=== PATIENT | female | born 1985 | race Caucasian/White ===

== ENCOUNTER 2017-09-03 04:02 | Inpatient (IN) | payer OTHER ==
[~2017-09-03] VITALS: Ht 170.2 cm; Wt 73.5 kg
[2017-09-03] MEDS ORDERED: SODIUM CHLORIDE 0.9% 1,000 ML IV ONE (04:46)
[2017-09-03] MEDS ORDERED: ONDANSETRON HCL 4MG/2ML VIAL IV STA (04:46)
[2017-09-03] MEDS ORDERED: LORAZEPAM 2MG/ML CPJ IV ONE (05:00)
[2017-09-03 05:05] LABS: CLARITY URINE CLOUDY (CLEAR); COLOR URINE DARK YELLOW (YELLOW); KETONES URINE 1+ (NEGATIVE); LEUKOCYTE ESTERASE URINE 1+ (NEGATIVE); NITRITE URINE POSITIVE (NEGATIVE); OCCULT BLOOD URINE 2+ (NEGATIVE); PH URINE 5.5 (4.5-8.0); PROTEIN URINE 3+ (NEGATIVE); SPECIFIC GRAVITY URINE 1.027 (1.005-1.030)
[2017-09-03 05:09] LABS: EOSINOPHILS % 0.2 % (0.0-5.0); HEMATOCRIT. 40.4 % (36.0-48.0); HEMOGLOBIN. 13.8 g/dL (12.0-16.0); LYMPHOCYTES % 42.2 % (20.0-50.0); MEAN CORPUSCULAR HEMOGLOBIN 31.6 pg (28.0-32.0); MEAN CORPUSCULAR VOLUME 92.4 fL (81.0-99.0); NEUTROPHILS % 42.6 % (40.0-76.0); PLATELET 98 x1000/uL (130-400); RED BLOOD CELL COUNT 4.37 mill/uL (4.2-5.4); RED CELL DISTRIBUTION WIDTH 15.5 % (11.6-14.6)
[2017-09-03 05:27] LABS: CARBON DIOXIDE 23 mEq/L (21-32); CHLORIDE 100 mEq/L (98-107)
[2017-09-03] MEDS ORDERED: SODIUM CHLORIDE 0.9% 1000ML BAG (SEPSIS BOLUS) IV ONE (06:15)
[2017-09-03] MEDS ORDERED: LEVOFLOXACIN 750MG PREMIX 150 ML IV ONE (06:15)
[2017-09-03 08:00] VITALS: BP 122/71
[2017-09-03] MEDS ORDERED: KETOROLAC 15MG/ML VIAL IV PRN (08:00)
[2017-09-03] MEDS ORDERED: NA PHOS,M-B/NA PHOS,DI-BA ENEMA 118ML PR PRN (08:00)
[2017-09-03] MEDS ORDERED: MAGNESIUM/ALUMINUM HYDROXIDE/SIMETHICONE 30ML UDC PO PRN (08:00)
[2017-09-03] MEDS ORDERED: ONDANSETRON HCL 4MG/2ML VIAL IV PRN (08:00)
[2017-09-03] MEDS ORDERED: POTASSIUM CHLORIDE 20MEQ TABLET SR PO SCH (08:00)
[2017-09-03] MEDS ORDERED: CLONIDINE 0.1MG TABLET PO PRN (08:00)
[2017-09-03] MEDS ORDERED: IPRATROPIUM/ALBUTEROL 0.5-3(2.5)MG/3ML NEB INH PRN (08:00)
[2017-09-03] MEDS ORDERED: GUAIFENESIN 200MG/10ML SUGAR FREE UDC PO PRN (08:00)
[2017-09-03] MEDS ORDERED: DIPHENHYDRAMINE 50MG/ML VIAL IV PRN (08:00)
[2017-09-03] MEDS ORDERED: NITROGLYCERIN 0.4MG TABLET SL SL PRN (08:00)
[2017-09-03] MEDS ORDERED: DOCUSATE SODIUM 100MG CAPSULE PO PRN (08:00)
[2017-09-03] MEDS ORDERED: ACETAMINOPHEN 325MG TABLET PO PRN (08:00)
[2017-09-03] MEDS ORDERED: MVI, ADULT NO.1 10 ML, FOLIC ACID 1 MG, THIAMINE HCL 100 MG in SODIUM CHLORIDE 0.9% 1,0... IV SCH ×4 (09:30)
[2017-09-03] MEDS ORDERED: KCL 20MEQ/100ML PREMIX 100 ML IV SCH (09:30)
[2017-09-03] MEDS: FAMOTIDINE 20MG/2ML VIAL IV SCH ×2 (10:09→21:31)
[2017-09-03] MEDS: LEVOFLOXACIN 500MG PREMIX 100 ML IV SCH (10:11)
[2017-09-03] MEDS: CEFTRIAXONE 1 G PREMIX 50 ML IV SCH (10:11)
[2017-09-03 12:00] VITALS: BP 107/80
[2017-09-03] MEDS: CHLORDIAZEPOXIDE 25MG CAPSULE PO SCH ×2 (13:19→21:00)
[2017-09-03 20:00] VITALS: BP 129/74
[2017-09-03] MEDS: LORAZEPAM 0.5MG TABLET PO PRN (21:00)
[2017-09-03] MEDS ORDERED: ZOLPIDEM TARTRATE 5MG TABLET PO PRN (21:00)
[2017-09-04] VITALS (7 sets, daily range): BP systolic 113–136; BP diastolic 79–88
[2017-09-04] MEDS: CHLORDIAZEPOXIDE 25MG CAPSULE PO SCH ×3 (05:47→20:21)
[2017-09-04] MEDS: LORAZEPAM 0.5MG TABLET PO PRN (05:47)
[2017-09-04] MEDS: CEFTRIAXONE 1 G PREMIX 50 ML IV SCH (08:42)
[2017-09-04] MEDS: FAMOTIDINE 20MG/2ML VIAL IV SCH ×2 (08:42→20:45)
[2017-09-04] MEDS: LEVOFLOXACIN 500MG PREMIX 100 ML IV SCH (08:42)
[2017-09-04 09:20] LABS: CARBON DIOXIDE 24 mEq/L (21-32); CHLORIDE 99 mEq/L (98-107); PHOSPHORUS 2.2 mg/dL (2.5-4.9)
[2017-09-04 14:00] LABS: *AMPHETAMINES SCREEN URINE NEGATIVE (NEGATIVE); *BARBITURATES SCREEN URINE NEGATIVE (NEGATIVE); *COCAINE SCREEN URINE NEGATIVE (NEGATIVE); CANNABINOID URINE SCREEN NEGATIVE (NEGATIVE); METHADONE URINE SCREEN NEGATIVE (NEGATIVE); OPIATES URINE SCREEN NEGATIVE (NEGATIVE); PHENCYCLIDINE URINE SCREEN NEGATIVE (NEGATIVE)
[2017-09-04 14:07] LABS: *BENZODIAZEPINES SCREEN URINE PRESUMTIVE POSITIVE (NEGATIVE)
[2017-09-05] VITALS: BP 114/81
[2017-09-05] MEDS: LORAZEPAM 0.5MG TABLET PO PRN (01:13)
[2017-09-05 04:00] VITALS: BP 115/79
[2017-09-05] MEDS: CHLORDIAZEPOXIDE 25MG CAPSULE PO SCH (06:55)
[2017-09-05 08:00] VITALS: BP 121/88
[2017-09-05] MEDS: FAMOTIDINE 20MG/2ML VIAL IV SCH (08:57)
[2017-09-05] MEDS ORDERED: CEFTRIAXONE 1 G PREMIX 50 ML IV SCH (10:00)
[2017-09-05] MEDS ORDERED: LEVOFLOXACIN 500MG PREMIX 100 ML IV SCH (11:00)
== END 2017-09-05 10:10 | disposition left against medical advice (07) | DRG 872 ==
LOC: ER 04:02 → 7WST 06:12 → ENRESERV 07:12
PROVIDERS: ADMIT Internal Medicine; ATTEND Internal Medicine
DX: A41.9 Sepsis, unspecified organism (principal); E87.6 Hypokalemia; F10.239 Alcohol dependence with withdrawal, unspecified; N39.0 Urinary tract infection, site not specified; F12.90 Cannabis use, unspecified, uncomplicated; F17.210 Nicotine dependence, cigarettes, uncomplicated; Z53.21 Procedure and treatment not carried out due to patient leaving prior to being seen by health care provider; I10 Essential (primary) hypertension; Z88.2 Allergy status to sulfonamides
CPT/HCPCS: 36415; 71045; 80053; 80305; 81001; 81025; 83605; 83690; 83735; 84100; 85025; 87040; 87086; 93005; 93970; 96361; 96365; 96375; 99285; G0482; J0696; J1885; J1956; J2060; J2405; J3411; J3480; J3490; J7030